=== PATIENT | female | born 1955 | race Caucasian/White ===

== ENCOUNTER 2021-01-04 09:46 | Emergency (ER) | payer MEDICARE ==
[~2021-01-04] VITALS: Ht 175.3 cm; Wt 77.3 kg
[2021-01-04] MEDS ORDERED: MESSAGE TO NURSING PO SCH (10:00)
[2021-01-04] MEDS ORDERED: iohexol 350MG/ML 100ml bottle IV ONE (10:04)
[2021-01-04] MEDS ORDERED: ondansetron/PF 4mg/2ml inj IV ONE (10:05)
[2021-01-04] MEDS ORDERED: normal saline 1000ML IV soln IVB ONE (10:05)
[2021-01-04] MEDS ORDERED: fentaNYL/PF 50MCG/1 ML 2ML syringe IV ONE (10:05)
[2021-01-04 10:26] LABS: BASOPHILS # (AUTO) 0.1 X10'3 (0-0.2); BASOPHILS % (AUTO) 0.9 % (0-1); EOSINOPHILS # (AUTO) 0.2 X10'3 (0-0.9); EOSINOPHILS % (AUTO) 2.5 % (0-6); HEMATOCRIT 40.1 % (35.0-45.0); HEMOGLOBIN 13.1 g/dl (12.0-16.0); LYMPHOCYTES # (AUTO) 2.2 X10'3 (1.1-4.8); LYMPHOCYTES % (AUTO) 27.8 % (21-51); MEAN CORPUSCULAR HGB CONC 32.7 g/dL (33.0-36.5); MEAN CORPUSCULAR VOLUME 88.7 FL (78-98); MONOCYTES # (AUTO) 0.5 X10'3 (0-0.9); MONOCYTES % (AUTO) 6.6 % (2-12); NEUTROPHILS # (AUTO) 4.9 X10'3 (1.8-7.7); NEUTROPHILS % (AUTO) 62.2 % (42-75); PLATELET COUNT 234 X10'3 (140-440); RED BLOOD COUNT 4.53 X10'6 (4.20-5.60); RED CELL DISTRIBUTION WIDTH 14.6 % (11.5-14.5); WHITE BLOOD COUNT 7.9 X10'3 (4.5-11.0)
[2021-01-04 10:37] LABS: ALANINE AMINOTRANSFERASE 53 U/L (12-78); ALBUMIN 4.4 G/DL (3.4-5.0); ALBUMIN/GLOBULIN RATIO 1.1 (1.1-1.5); ALKALINE PHOSPHATASE 63 IU/L (46-116); ANION GAP 11 (8-16); ASPARTATE AMINO TRANSFERASE 46 U/L (10-37); BILIRUBIN,TOTAL 0.6 MG/DL (0.1-1.0); BLOOD UREA NITROGEN 13 MG/DL (7-18); CALCIUM 10.1 MG/DL (8.5-10.1); CHLORIDE 104 MMOL/L (99-107); CREATININE 0.81 MG/DL (0.40-0.90); GLUCOSE 193 MG/DL (70-104); POTASSIUM 4.2 MMOL/L (3.5-5.1); SODIUM 140 MMOL/L (135-145); TOTAL PROTEIN 8.3 G/DL (6.4-8.2); eGFR 71 ML/MIN
[2021-01-04 10:41] LABS: D-DIMER 0.76 MG/L FEU (0-0.50)
[2021-01-04 10:43] LABS: PARTIAL THROMBOPLASTIN TIME 20 SECONDS (22-32)
[2021-01-04 10:47] LABS: MAGNESIUM 1.8 MG/DL (1.5-2.4)
[2021-01-04 11:27] LABS: LIPASE 373 U/L (73-393)
[2021-01-04] MEDS ORDERED: METR500T PO (12:07)
[2021-01-04] MEDS ORDERED: CIPR-259 PO (12:07)
[2021-01-04 12:21] VITALS: BP 152/86
[2021-01-04] MEDS ORDERED: magnesium citrate 296ml oral solution PO ONE (12:25)
== END 2021-01-04 12:41 | disposition home or self-care (01) ==
LOC: ER 09:46
DX: K57.32 Diverticulitis of large intestine without perforation or abscess without bleeding (principal); K59.00 Constipation, unspecified; R10.84 Generalized abdominal pain; E11.9 Type 2 diabetes mellitus without complications; G47.39 Other sleep apnea; Z87.440 Personal history of urinary (tract) infections; Z88.2 Allergy status to sulfonamides; Z79.2 Long term (current) use of antibiotics; Z79.899 Other long term (current) drug therapy
CPT/HCPCS: 36415; 71045; 71275; 74174; 80053; 83605; 83690; 83735; 83880; 84484; 85025; 85379; 85610; 85730; 93005; 96361; 96374; 96375; 99285; J2405; J3010; J7030; Q9967